=== PATIENT | female | born 1980 | race African-American/Black ===

== ENCOUNTER 2019-01-19 13:17 | Emergency (ER) | payer MEDICAID ==
[~2019-01-19] VITALS: Ht 160 cm; Wt 90.0 kg
[2019-01-19] MEDS ORDERED: KETOROLAC 60MG/2ML VIAL IM STA (14:41)
[2019-01-19 15:56] VITALS: BP 132/74
== END 2019-01-19 16:00 | disposition home or self-care (01) ==
LOC: ER 13:17
DX: M72.2 Plantar fascial fibromatosis (principal); J45.909 Unspecified asthma, uncomplicated
CPT/HCPCS: 73630; 81025; 96372; 99283; J1885

== ENCOUNTER 2020-03-20 01:13 | Emergency (ER) | payer OTHER ==
[~2020-03-20] VITALS: Ht 160 cm; Wt 95.0 kg
[2020-03-20] MEDS ORDERED: IBUPROFEN 600MG TABLET PO ONE (01:30)
[2020-03-20] MEDS ORDERED: TETANUS, DIPHTHERIA, PERTUSSIS VAC/PF 0.5ML (>7YR OLD) IM ONE (01:30)
[2020-03-20 01:48] VITALS: BP 126/61
== END 2020-03-20 01:48 | disposition home or self-care (01) ==
LOC: ER 01:13
DX: S91.321A Laceration with foreign body, right foot, initial encounter (principal); J45.909 Unspecified asthma, uncomplicated; W25.XXXA Contact with sharp glass, initial encounter; W45.8XXA Other foreign body or object entering through skin, initial encounter; Y93.89 Activity, other specified; Y92.018 Other place in single-family (private) house as the place of occurrence of the external cause
CPT/HCPCS: 99283